=== PATIENT | female | born 1995 | race Caucasian/White ===

== ENCOUNTER 2018-09-19 10:27 | Inpatient (IN) | payer MEDICAID ==
[~2018-09-19] VITALS: Ht 157.5 cm; Wt 128.2 kg
[2018-09-19] MEDS ORDERED: ZANTAC300 MG PO (10:34)
[2018-09-19] MEDS ORDERED: CLEOCIN HCL300 MG PO (10:34)
[2018-09-19] MEDS ORDERED: OMEPRAZOLE20 M1 PO (10:34)
[2018-09-19] MEDS ORDERED: ADIPEX (10:35)
[2018-09-19 11:35] LABS: BASOPHILS 0.2 % (0-2); EOSINOPHILS 3.2 % (0-7); HEMATOCRIT 38.9 % (36.0-48.0); IMMATURE GRANULOCYTES 0.3 % (0-5); LYMPHOCYTES 16.5 % (15-50); MCH 26.8 pg (26.0-34.0); MCHC 33.4 g/dL (31.0-37.0); MCV 80.2 fL (80.0-100.0); MEAN PLATELET VOLUME 9.7 fL (7.4-10.4); MONOCYTES 4.9 % (2-11); NEUTROPHILS 74.9 % (40-80); PLATELET COUNT 290 10x3/uL (130-400); RBC 4.85 10x6/uL (4.00-5.40); RDW 14.8 % (11.5-14.5); WBC 13.7 10x3/uL (4.8-10.8)
[2018-09-19 11:41] LABS: HCG SERUM NEGATIVE (NEGATIVE)
[2018-09-19 11:47] LABS: ALBUMIN 3.2 g/dL (3.4-5.0); ALKALINE PHOSPHATASE 116 U/L (46-116); ALT (SGPT) 39 U/L (10-68); BILIRUBIN - TOTAL 0.43 mg/dL (0.2-1.3); CALC OSMOLALITY 272 mosm/kg (275-300); CALCIUM 8.9 mg/dL (8.5-10.1); CARBON DIOXIDE 26.8 mmol/L (21.0-32.0); CHLORIDE - SERUM 104 mmol/L (98-107); CREATININE - SERUM 0.6 mg/dL (0.6-1.3); GLUCOSE 89 mg/dL (74-106); POTASSIUM - SERUM 3.6 mmol/L (3.5-5.1); PROTEIN - SERUM 7.9 g/dL (6.4-8.2); SODIUM 138 mmol/L (136-145); UREA NITROGEN 8 mg/dL (7-18); eGFR NON AFRICAN AMERICAN > 90 mL/min (90-120)
--- NOTE | 2018-09-19 14:18 | NUR ---
RECEIVED PT TO ROOM 1206 VIA WHEELCHAIR, PT ABLE TO ABLULATE FROM WHEELCHAIR TO BED, WITH A STEADY GATE. PT A/O X4, RESP EVEN AND NONLABORED ON RA. ORIENTED PT TO ROOM AND CALL LIGHT. WILL ASSESS PT AND START PLAN OF CARE.
[2018-09-19] MEDS ORDERED: ADIPEX-P37.5 M1 PO (14:19)
[2018-09-19] MEDS ORDERED: PROZAC20 MG PO (14:20)
[2018-09-19 14:34] VITALS: BP 140/70; BMI 51.7
--- NOTE | 2018-09-19 15:05 | MORECARE ---
CASE MANAGEMENT DISCHARGE SUMMARY PATIENT: TAJ WINTER UNIT: [id number] ADM DATE: 09/19/18 AGE: 23 : [birth year] SEX: F ROOM/BED: D.1206 AUTHOR: SHIRLEY,DOC PHYSICIAN: REFERRING PHYSICIAN: CHEKO LEBLANC DO DATE OF SERVICE: 09/19/18 Discharge Plan Patient Name: TAJ WINTER Facility: [facility]:[place] : 1995 Planned Disposition: Home Anticipated Discharge Date: 09/23/18 Discharge Date: Expected LOS: 4 Initial Reviewer: [email or web address] Initial Review Date: 09/19/2018 Generated: 09/19/18 4:05 pm DCP- Discharge Planning Updated by [email or web address]: Geri Olivo on 09/19/18 2:[address] Patient Name: TAJ WINTER Admission Status: ER Accout number: [id number] Admission Date: 09-19-2018 : 1995 Admission Diagnosis: Attending: CHEKO LEBLANC Current LOS: 1 Anticipated DC Date: 09-23-2018 Planned Disposition: Home Primary Insurance: [employer] OUT OF STATE Discharge Planning Comments: CM met with patient to complete initial dc planning assessment. CM educated patient on the CM role and verbal consent given by patient to complete assessment. CM verified patient's address, phone number, and emergency contact phone numbers. Patient lives at home independently with her two younger children. At discharge patient plans to return home independently and feels this is a safe discharge. CM discussed availability of home health, rehab services, and medical equipment. Patient denied known discharge needs at this time. Patient reports her mother will transport her home at time of discharge. CM will continue to follow and will assist as needed with dc plans/needs. Dietetics Director: Geri Olivo RN, [facility] DCPIA - Discharge Planning Initial Assessment Updated by [email or web address]: Geri Olivo on 09/19/18 2:59 pm * Is the patient Alert and Oriented? Yes * How many steps to enter\exit or inside your home? * PCP Dr. Childress * Pharmacy [facility] [address] * Preadmission Environment Home Alone * ADLs Independent * Equipment None * List name and contact numbers for known caregivers / representatives who currently or will assist patient after discharge: Elsy Rivas - - [phone] * Verbal permission to speak to the caregivers and representatives has been obtained from the patient. Yes * Community resources currently utilized None * Additional services required to return to the preadmission environment? No * Can the patient safely return to the preadmission environment? Yes * Has this patient been hospitalized within the prior 30 days at any hospital? No Patient Name: TAJ WINTER Page 68327 at 1505 All edits/amendments must be made on the electronic document DICTATION DATE: 09/19/18 1505 WRAPPER SELECTOR: AKILAH 09/19/18 1505 RPT#: [id number] DC DATE: STATUS: ADM IN [facility] [address] [place] [address] END OF REPORT
[2018-09-19 15:41] VITALS: BP 147/69
--- NOTE | 2018-09-19 16:27 | NUR ---
PT RESTING COMFORTALY IN BED, WITH EYES CLOSED, NAD NOTED, CALL LIGHT IN REACH, BEDSIDE RAIL X2, NAD NOTED.
[2018-09-19 17:46] VITALS: Ht 157.5 cm; Wt 128.2 kg
--- NOTE | 2018-09-19 18:25 | NUR ---
PAULIE CHOU HUNG AT THIS TIME. HOUSEKEEPING ROOM INSPECTOR HERE TO DRAW BLOOD CULTURES. PT RATES PAIN LEVEL OF 8/10. DOES NOT WANT PAIN MEDICATIONS RIGHT NOW, WANTS TO WAIT UNTIL MOTHER BRINGS HER SOMETHING TO EAT.
[2018-09-19 19:46] VITALS: BP 153/77
--- NOTE | 2018-09-19 23:26 | NUR ---
SWELLING AND REDNESS NOTED AT PATIENT'S RIGHT FA IV. REMOVED PIV WITH TIP INTACT. RESITED THE PATIENT'S IV IN HER LEFT HAND WITH A 22G ON THE SECOND ATTEMPT.
[2018-09-20] VITALS: BP 138/70
[2018-09-20 04:30] VITALS: BP 133/59
--- NOTE | 2018-09-20 07:31 | NUR ---
INITIAL ROUNDING ON THE PATIENT, SHE IS AWAKE AND RESTING WITH THE LIGHTS OFF. SHE COMPLAINS OF "DISCOMFORT WITH URINATION" AND ASKING WHEN THE DOCTOR WILL COME THIS AM. CALL MANJU IN REACH, ON ROOM AIR.
[2018-09-20 07:32] VITALS: BP 129/63
[2018-09-20 17:12] VITALS: BP 111/55
[2018-09-20 20:00] VITALS: BP 118/63
--- NOTE | 2018-09-20 20:48 | NUR ---
PT STATES:" SHE HAS ITSCHINING, YEAST INFECTION IN VAGINA AREA." SHE WANT TO KNOW IF SHE CAN TAKE HER OWN DIFLUCAN. CHARGE NURSE TALK TO PT AND CHARGE NURSE AGREE THAT PT TAKE HER DIFLUCAN.
[2018-09-21] VITALS (7 sets, daily range): BP systolic 90–149; BP diastolic 47–83
--- NOTE | 2018-09-21 00:28 | NUR ---
REST IN BED, DENIES NEEDS AT THIS TIMES, CALL LIGHT IN REACH.
--- NOTE | 2018-09-21 04:34 | NUR ---
REST QUIETLY IN BED, CALL LIGHT IN REACH.
--- NOTE | 2018-09-21 07:00 | NUR ---
INITIAL ROUNDING, THE PATIENT IS ASLEEP WITH THE TV AND LIGHTS OFF. CALL LIGHT IN REACH
--- NOTE | 2018-09-21 17:26 | MORECARE ---
CASE MANAGEMENT DISCHARGE SUMMARY PATIENT: TAJ WINTER UNIT: [id number] ADM DATE: 09/19/18 AGE: 23 : [birth year] SEX: F ROOM/BED: D.1206 AUTHOR: SHIRLEY,DOC PHYSICIAN: REFERRING PHYSICIAN: CHEKO LEBLANC DO DATE OF SERVICE: 09/21/18 Discharge Plan Patient Name: TAJ WINTER Facility: [facility]:[place] : 1995 Planned Disposition: Home Anticipated Discharge Date: 09/23/18 Discharge Date: Expected LOS: 4 Initial Reviewer: [email or web address] Initial Review Date: 09/19/2018 Generated: 09/21/18 6:26 pm DCP- Discharge Planning Updated by [email or web address]: Geri Olivo on 09/19/18 2:[address] Patient Name: TAJ WINTER Admission Status: ER Accout number: [id number] Admission Date: 09-19-2018 : 1995 Admission Diagnosis: Attending: CHEKO LEBLANC Current LOS: 1 Anticipated DC Date: 09-23-2018 Planned Disposition: Home Primary Insurance: [employer] OUT OF STATE Discharge Planning Comments: CM met with patient to complete initial dc planning assessment. CM educated patient on the CM role and verbal consent given by patient to complete assessment. CM verified patient's address, phone number, and emergency contact phone numbers. Patient lives at home independently with her two younger children. At discharge patient plans to return home independently and feels this is a safe discharge. CM discussed availability of home health, rehab services, and medical equipment. Patient denied known discharge needs at this time. Patient reports her mother will transport her home at time of discharge. CM will continue to follow and will assist as needed with dc plans/needs. Rotating Equipment Engineer: Geri Olivo RN, [facility] DCPIA - Discharge Planning Initial Assessment Updated by [email or web address]: Geri Olivo on 09/19/18 2:59 pm * Is the patient Alert and Oriented? Yes * How many steps to enter\exit or inside your home? * PCP Dr. Childress * Pharmacy [facility] [address] * Preadmission Environment Home Alone * ADLs Independent * Equipment None * List name and contact numbers for known caregivers / representatives who currently or will assist patient after discharge: Elsy Rivas - - [phone] * Verbal permission to speak to the caregivers and representatives has been obtained from the patient. Yes * Community resources currently utilized None * Additional services required to return to the preadmission environment? No * Can the patient safely return to the preadmission environment? Yes * Has this patient been hospitalized within the prior 30 days at any hospital? No External Providers External Provider: [facility] Next Contact Date: Service Request Date: Service Type: Resolution: Reviewer: Comments: Last DP export: 09/19/18 2:05 p Patient Name: TAJ WINTER Page 15982 at 1726 All edits/amendments must be made on the electronic document DICTATION DATE: 09/21/181725 STRAIGHT TOOTH GEAR GENERATOR OPERATOR: AKILAH 09/21/181725 RPT#: [id number] DC DATE: STATUS: ADM IN [facility] [address] [place] [address] END OF REPORT
--- NOTE | 2018-09-21 17:39 | MORECARE ---
CASE MANAGEMENT DISCHARGE SUMMARY PATIENT: TAJ WINTER UNIT: [id number] ADM DATE: 09/19/18 AGE: 23 : [birth year] SEX: F ROOM/BED: D.1206 AUTHOR: SHIRLEY,DOC PHYSICIAN: REFERRING PHYSICIAN: CHEKO LEBLANC DO DATE OF SERVICE: 09/21/18 Discharge Plan Patient Name: TAJ WINTER Facility: [facility]:[place] : 1995 Planned Disposition: Home Anticipated Discharge Date: 09/23/18 Discharge Date: Expected LOS: 4 Initial Reviewer: [email or web address] Initial Review Date: 09/19/2018 Generated: 09/21/18 6:39 pm Comments DCP- Discharge Planning Updated by [email or web address]: Bozena Roberto on 09/21/18 4:[address] CM received an order for Home Health for dressing changes upon discharge VELMA signed for [facility] and Trav secondary. [facility] doesn't have any availability until Wednesday. CM sent records to [facility] will check back in am to see availability. CM will continue to follow and assist as needed with discharge planning / needs. DCP- Discharge Planning Updated by [email or web address]: Geri Olivo on 09/19/18 2:[address] Patient Name: TAJ WINTER Admission Status: ER Accout number: [id number] Admission Date: 09-19-2018 : 1995 Admission Diagnosis: Attending: CHEKO LEBLANC Current LOS: 1 Anticipated DC Date: 09-23-2018 Planned Disposition: Home Primary Insurance: [employer] OUT OF STATE Discharge Planning Comments: CM met with patient to complete initial dc planning assessment. CM educated patient on the CM role and verbal consent given by patient to complete assessment. CM verified patient's address, phone number, and emergency contact phone numbers. Patient lives at home independently with her two younger children. At discharge patient plans to return home independently and feels this is a safe discharge. CM discussed availability of home health, rehab services, and medical equipment. Patient denied known discharge needs at this time. Patient reports her mother will transport her home at time of discharge. CM will continue to follow and will assist as needed with dc plans/needs. Igniter Capper: Geri Olivo RN, [facility] DCPIA - Discharge Planning Initial Assessment Updated by [email or web address]: Geri Olivo on 09/19/18 2:59 pm * Is the patient Alert and Oriented? Yes * How many steps to enter\exit or inside your home? * PCP Dr. Childress * [facility] [address] * Preadmission Environment Home Alone * ADLs Independent * Equipment None * List name and contact numbers for known caregivers / representatives who currently or will assist patient after discharge: Elsy Rivas - [facility] - [phone] * Verbal permission to speak to the caregivers and representatives has been obtained from the patient. Yes * Community resources currently utilized None * Additional services required to return to the preadmission environment? No * Can the patient safely return to the preadmission environment? Yes * Has this patient been hospitalized within the prior 30 days at any hospital? No Last DP export: 09/21/18 4:26 p Patient Name: TAJ WINTER Page 79528 at 1739 All edits/amendments must be made on the electronic document DICTATION DATE: 09/21/181738 MILLINER HELPER: AKILAH 09/21/181738 RPT#: [id number] MO DATE: STATUS: ADM IN [facility] [address] [place] [address] END OF REPORT
--- NOTE | 2018-09-21 20:00 | NUR ---
EVENING ROUNDS MADE. PT LAYING IN BED RESTING. VITALS STABLE. PT C/O PAIN/HEADACHE. STATES SHE WOULD LIKE PAIN MEDICINE WITH HER NIGHT MEDS. NO FURTHER CONCERNS AT THIS TIME. BED LOWERED AND LOCKED. CL IN REACH. WILL CTM.
--- NOTE | 2018-09-22 00:50 | NUR ---
CHECKED PT TEMP IS 100.6 CALLED RUBBER AND POUNDER, TYLENOL ORDERED FOR PT.
[2018-09-22 00:53] VITALS: BP 116/61
--- NOTE | 2018-09-22 00:54 | NUR ---
RECHECKED PT TEMP 99.6 AFTER TYLENOL 650MG GIVEN ORDERED.
[2018-09-22 05:37] VITALS: BP 111/60
[2018-09-22 06:22] LABS: BASOPHILS 0.2 % (0-2); EOSINOPHILS 4.6 % (0-7); HEMATOCRIT 36.9 % (36.0-48.0); HEMOGLOBIN 12.2 g/dL (12-16); IMMATURE GRANULOCYTES 0.4 % (0-5); LYMPHOCYTES 23.4 % (15-50); MCH 26.5 pg (26.0-34.0); MCHC 33.1 g/dL (31.0-37.0); MEAN PLATELET VOLUME 9.6 fL (7.4-10.4); NEUTROPHILS 67.4 % (40-80); PLATELET COUNT 342 10x3/uL (130-400); RBC 4.61 10x6/uL (4.00-5.40); RDW 14.3 % (11.5-14.5)
[2018-09-22 06:53] LABS: CALC OSMOLALITY 274 mosm/kg (275-300); CALCIUM 8.7 mg/dL (8.5-10.1); CARBON DIOXIDE 26.2 mmol/L (21.0-32.0); CHLORIDE - SERUM 103 mmol/L (98-107); CREATININE - SERUM 0.8 mg/dL (0.6-1.3); GLUCOSE 95 mg/dL (74-106); POTASSIUM - SERUM 4.1 mmol/L (3.5-5.1); SODIUM 138 mmol/L (136-145); UREA NITROGEN 10 mg/dL (7-18); eGFR NON AFRICAN AMERICAN > 90 mL/min (90-120)
--- NOTE | 2018-09-22 07:00 | NUR ---
INITIAL ROUNDING, PATIENT IS SLEEPING WITH TV AND LIGHTS OFF.
[2018-09-22] MEDS ORDERED: DIFLUCAN100 MG PO (10:40)
[2018-09-22] MEDS ORDERED: HYDROCODON-ACE1 EAC2 PO (10:40)
[2018-09-22] MEDS ORDERED: FLORAJEN3 CAPS460 MG PO (10:40)
[2018-09-22] MEDS ORDERED: SULFAMETHOXAZOL1 TA3 PO (10:41)
--- NOTE | 2018-09-22 11:35 | MORECARE ---
CASE MANAGEMENT DISCHARGE SUMMARY PATIENT: TAJ WINTER UNIT: [id number] ADM DATE: 09/19/18 AGE: 23 : [birth year] SEX: F ROOM/BED: D.1206 AUTHOR: SHIRLEY,DOC PHYSICIAN: REFERRING PHYSICIAN: CHEKO LEBLANC DO DATE OF SERVICE: 09/22/18 Discharge Plan Patient Name: TAJ WINTER Facility: [facility]:[place] : 1995 Planned Disposition: Home Anticipated Discharge Date: 09/23/18 Discharge Date: Expected LOS: 4 Initial Reviewer: [email or web address] Initial Review Date: 09/19/2018 Generated: 09/22/18 12:35 pm Comments DCP- Discharge Planning Updated by [email or web address]: Bozena Roberto on 09/21/18 4:[address] CM received an order for Home Health for dressing changes upon discharge VELMA signed for [facility] and Trav secondary. [facility] doesn't have any availability until Wednesday. CM sent records to [facility] will check back in am to see availability. CM will continue to follow and assist as needed with discharge planning / needs. DCP- Discharge Planning Updated by [email or web address]: Geri Olivo on 09/19/18 2:[address] Patient Name: TAJ WINTER Admission Status: ER Accout number: [id number] Admission Date: 09-19-2018 : 1995 Admission Diagnosis: Attending: CHEKO LEBLANC Current LOS: 1 Anticipated DC Date: 09-23-2018 Planned Disposition: Home Primary Insurance: [facility] OUT OF STATE Discharge Planning Comments: CM met with patient to complete initial dc planning assessment. CM educated patient on the CM role and verbal consent given by patient to complete assessment. CM verified patient's address, phone number, and emergency contact phone numbers. Patient lives at home independently with her two younger children. At discharge patient plans to return home independently and feels this is a safe discharge. CM discussed availability of home health, rehab services, and medical equipment. Patient denied known discharge needs at this time. Patient reports her mother will transport her home at time of discharge. CM will continue to follow and will assist as needed with dc plans/needs. Entry Level Programmer: Geri Olivo RN, [facility] DCPIA - Discharge Planning Initial Assessment Updated by [email or web address]: Geri Olivo on 09/19/18 2:59 pm * Is the patient Alert and Oriented? Yes * How many steps to enter\exit or inside your home? * PCP Dr. Childress * Pharmacy [facility] [address] * Preadmission Environment Home Alone * ADLs Independent * Equipment None * List name and contact numbers for known caregivers / representatives who currently or will assist patient after discharge: Elsy Rivas - [facility] - [phone] * Verbal permission to speak to the caregivers and representatives has been obtained from the patient. Yes * Community resources currently utilized None * Additional services required to return to the preadmission environment? No * Can the patient safely return to the preadmission environment? Yes * Has this patient been hospitalized within the prior 30 days at any hospital? No External Providers External Provider: [facility] Next Contact Date: Service Request Date: Service Type: Resolution: Reviewer: Comments: Last DP export: 09/21/18 4:39 p Patient Name: TAJ WINTER Page 90419 at 1135 All edits/amendments must be made on the electronic document DICTATION DATE: 09/22/18 113 HOSE COUPLING JOINER: AKILAH 09/22/18 113 RPT#: [id number] PA DATE: STATUS: ADM IN [facility] [address] [place] [address] END OF REPORT
--- NOTE | 2018-09-22 12:14 | MORECARE ---
CASE MANAGEMENT DISCHARGE SUMMARY PATIENT: TAJ WINTER UNIT: [id number] ADM DATE: 09/19/18 AGE: 23 : [birth year] SEX: F ROOM/BED: D.1206 AUTHOR: SHIRLEY,DOC PHYSICIAN: REFERRING PHYSICIAN: CHEKO LEBLANC DO DATE OF SERVICE: 09/22/18 Discharge Plan Patient Name: TAJ WINTER Facility: [facility]:[place] : 1995 Planned Disposition: Home Anticipated Discharge Date: 09/23/18 Discharge Date: 09/22/2018 Expected LOS: 4 Initial Reviewer: [email or web address] Initial Review Date: 09/19/2018 Generated: 09/22/18 1:14 pm Comments DCP- Discharge Planning Updated by [email or web address]: Bozena Roberto on 09/22/18 11:[address] CM contacted [facility] they have no availability for a week. CM spoke with patient she stated that she would go with any Home Health that could see her so she could go home. CM called [facility] nothing available until next week. [facility] next availability is Wednesday. [facility] could see patient tomorrow. CM spoke with [facility] [phone] @ [facility] and faxed over records [phone]. CM spoke with patient and she said that would be fine. CM explained that the HH would call her tomorrow to set up time for visit. CM will continue to follow and assist as needed with discharge planning / needs. DCP- Discharge Planning Updated by [email or web address]: Bozena Roberto on 09/21/18 4:[address] CM received an order for Home Health for dressing changes upon discharge VELMA signed for Care [facility] and [place] secondary. [facility] doesn't have any availability until Wednesday. CM sent records to [facility] will check back in am to see availability. CM will continue to follow and assist as needed with discharge planning / needs. DCP- Discharge Planning Updated by [id number]: Geri Olivo on 09/19/18 2:[address] Patient Name: TAJ WINTER Admission Status: ER Accout number: [id number] Admission Date: 09-19-2018 : 1995 Admission Diagnosis: Attending: CHEKO LEBLANC Current LOS: 1 Anticipated DC Date: 09-23-2018 Planned Disposition: Home Primary Insurance: [employer] OUT OF STATE Discharge Planning Comments: CM met with patient to complete initial dc planning assessment. CM educated patient on the CM role and verbal consent given by patient to complete assessment. CM verified patient's address, phone number, and emergency contact phone numbers. Patient lives at home independently with her two younger children. At discharge patient plans to return home independently and feels this is a safe discharge. CM discussed availability of home health, rehab services, and medical equipment. Patient denied known discharge needs at this time. Patient reports her mother will transport her home at time of discharge. CM will continue to follow and will assist as needed with dc plans/needs. Certified Pharmacy Tech: Geri Olivo RN, [facility] DCPIA - Discharge Planning Initial Assessment Updated by [email or web address]: Geri Olivo on 09/19/18 2:59 pm * Is the patient Alert and Oriented? Yes * How many steps to enter\exit or inside your home? * PCP Dr. Childress * Pharmacy [facility] on [address] * Preadmission Environment Home Alone * ADLs Independent * Equipment None * List name and contact numbers for known caregivers / representatives who currently or will assist patient after discharge: Elsy Rivas - mother - [phone] * Verbal permission to speak to the caregivers and representatives has been obtained from the patient. Yes * Community resources currently utilized None * Additional services required to return to the preadmission environment? No * Can the patient safely return to the preadmission environment? Yes * Has this patient been hospitalized within the prior 30 days at any hospital? No Last DP export: 09/22/18 10:35 a Patient Name: TAJ WINTER Page 30756 at 1214 All edits/amendments must be made on the electronic document DICTATION DATE: 09/22/18 1214 CDL INSTRUCTOR: AKILAH 09/22/18 1214 RPT#: [id number] DC DATE:09/22/18 STATUS: DIS IN [facility] [address] [place] [address] END OF REPORT
--- NOTE | 2018-09-22 12:45 | NUR ---
IV REMOVED FROM THE LEFT HAND. PATIENT INSTRUCTED ON WOUND CARE. DISCHARGE PAPERS SENT WITH THE PATIENT, FAMILY PICKED HER UP
== END 2018-09-22 12:02 | disposition home health service (06) | DRG 607 ==
LOC: D.ER 10:27 → D.M3 13:53
PROVIDERS: Emergency Medicine; Family Medicine; Surgery; ADMIT Family Medicine; ATTEND Family Medicine
PROC: 0X950ZZ Drainage of Left Axilla, Open Approach (ICD-10-PCS; principal; 2018-09-21 11:00)
DX: L73.2 Hidradenitis suppurativa (principal); Z68.43 Body mass index [BMI] 50.0-59.9, adult; L03.112 Cellulitis of left axilla; K21.9 Gastro-esophageal reflux disease without esophagitis; F41.9 Anxiety disorder, unspecified; E66.01 Morbid (severe) obesity due to excess calories

== ENCOUNTER → 2019-01-04 08:10 | Day surgery (SDC) | payer MEDICAID ==
[2019-01-02 14:04] LABS: HEMATOCRIT 38.1 % (36.0-48.0); HEMOGLOBIN 12.7 g/dL (12-16); MCH 26.7 pg (26.0-34.0); MCHC 33.3 g/dL (31.0-37.0); MEAN PLATELET VOLUME 9.6 fL (7.4-10.4); RBC 4.76 10x6/uL (4.00-5.40); RDW 14.6 % (11.5-14.5)
[~2019-01-04] VITALS: Ht 157.5 cm; Wt 122.5 kg
--- NOTE | ~2019-01-04 | OP ---
PATIENT NAME: TAJ WINTER MEDICAL RECORD: [id number] :[birth year] LOCATION:D.OPS ADMISSION DATE: SURGEON: ILANA CHUN DO DATE OF OPERATION: 01/04/2019 PREOPERATIVE DIAGNOSIS: Abnormal Pap smear. POSTOPERATIVE DIAGNOSES: Abnormal Pap smear. PRIMARY SURGEON: Ilana Chun DO MORTGAGE ASSISTANT SURGEON: Not applicable. ANESTHESIA: Dr. Gonzalez. PROCEDURE: Colposcopy, biopsy of cervix at 3 o'clock, and endocervical curettage. FINDINGS: Normal appearing external genitalia, normal appearing vaginal vault. Cervix with mild acetowhite changes at 3 o'clock. No mosaicism, punctation, or abnormal vessels. IUD strings were not visualized. SPECIMENS: Endocervical and cervical curettings, biopsy of cervix at 3 o'clock. ESTIMATED BLOOD LOSS: 2 mL. INTRAVENOUS FLUIDS: 400 cc. COMPLICATIONS: None. CONDITION: Stable. PROCEDURE: The risks, benefits, alternatives, and indications of the procedure were discussed with the patient. She voiced an understanding of the procedure and signed the consent. She was taken to the OR where general anesthesia was administered and found to be adequate. She was placed in the dorsal lithotomy position with candy cane stirrups. She was prepped and draped in normal sterile fashion. A speculum was placed into the posterior aspect of the vagina. The cervix was visualized and acetic acid was applied to the entire cervix. The transitional zone was visualized. Mild acetowhite changes were noted at 3 o'clock; however, no abnormal vessels punctation or mosaicism was noted. A biopsy of the 3 o'clock position was then taken and sent to pathology. A gentle sharp endocervical curettage was performed with endocervical curettings sent to pathology. The biopsy site was hemostatic with the application of Monsel solution. All instruments were removed from the vagina. All lap, sponge, and instrument counts were correct times 2. The patient tolerated the procedure well. She was awakened and taken to the recovery room in stable condition. TRANSINT:[id number] Voice Confirmation ID: [id number] DOCUMENT ID: [id number] OPERATIVE REPORT [id number] TAJ WINTER ILANA CHUN DO CC: [id number] DICTATION DATE: 01/04/19 120 CANDLE CUTTER: 01/04/19 2521 [facility] [address] [place] [address]
[~2019-01-04 08:10] MED LIST: ADIPEX; ADIPEX-P37.5 M1 PO; CLEOCIN HCL300 MG PO; DIFLUCAN100 MG PO; FLORAJEN3 CAPS460 MG PO; HYDROCODON-ACE1 EAC2 PO; OMEPRAZOLE20 M1 PO; PROZAC20 MG PO; SULFAMETHOXAZOL1 TA3 PO; ZANTAC300 MG PO
[2019-01-04 08:59] VITALS: BP 132/71; Ht 157.5 cm; Wt 122.5 kg
[2019-01-04 09:55] LABS: HCG URINE NEGATIVE (NEGATIVE)
== END | disposition home or self-care (01) ==
LOC: D.OPS 08:10 → D.PAN 08:45 → D.OPS 08:45
PROVIDERS: Anesthesiology; ATTEND Student in an Organized Health Care Education/Training Program
DX: R87.619 Unspecified abnormal cytological findings in specimens from cervix uteri (principal)